=== PATIENT | female | born 1995 | race Hispanic/Latino ===

== ENCOUNTER 2023-05-26 02:11 | Emergency (ER) | payer OTHER, SELFPAY ==
[2023-05-26 02:21] VITALS: BP 145/81; PULSE 86; RESP 16; TEMP 37.1; O2SAT 97; BMI 33.6
--- NOTE | 2023-05-26 02:28 | DI.US.S_ITS ---
PROCEDURE: US PELVIC COMPLETE INDICATIONS: Abnormal vaginal bleeding TECHNIQUE: Real-time scanning was performed of the pelvic organs, with image documentation. Additional endovaginal scanning was necessary due to incomplete visualization of the adnexal and endometrial structures by transabdominal scanning. COMPARISON: None. FINDINGS: Uterus: Uterus is anteverted and normal in size at 7.9 x 4.1 x 5.9 cm. The myometrium is homogeneous. The endometrium measures 13 mm combined thickness. Ovaries: The right ovary measures 2.7 x 2.3 x 2.4 cm, with a calculated ovarian volume of 7.8 cc. The left ovary measures 2.3 x 2.2 x 2.2 cm, with a calculated ovarian volume of 6 cc. The ovaries have a normal sonographic appearance. Greater than 12 follicles can be seen in each ovary. No adnexal masses are seen. Normal arterial waveforms of the ovaries. Other: No pathologic free abdominal or pelvic fluid. IMPRESSION: Greater than 12 follicles per ovary, which can be seen in the clinical setting of PCOS. We strive to produce accurate, complete, and clear reports of imaging services. To assist us in improving patient care, this report was composed using standard report templates and voice recognition software. Therefore, it may contain abnormal punctuation, insertions and/or omissions. Occasional wrong-word or sound-alike substitutions may occur. Though we review the report and make efforts to correct it, we do recommend that the report be read carefully in proper context to recognize any text inaccuracies. Dictated by: Bro Burroughs M.D. on 05/26/2023 at 8:06 Approved by: Bro Burroughs M.D. on 05/26/2023 at 8:08
[2023-05-26 02:50] LABS: Add Manual Diff / Slide Review NO; Basophils Absolute Auto 0 /uL (0-100); Basophils Percent Auto 0.2 % (0-2); Eosinophils Absolute Auto 0 /uL (0-450); Eosinophils Percent Auto 0.1 % (2-4); Hematocrit 34.1 % (36-46); Hemoglobin 12.1 g/dL (12.0-16.0); Lymphocytes Absolute Auto 2500 /uL (1100-4500); Lymphocytes Percent Auto 29.1 % (25-40); Mean Corpuscular HGB Conc 35.5 % (30-36); Mean Corpuscular Hemoglobin 28.8 PG (26-34); Mean Corpuscular Volume 81.2 fL (80-100); Monocytes Absolute Auto 600 /uL (0-900); Monocytes Percent Auto 6.3 % (3-14); Neutrophils Absolute Auto 5600 /uL (1500-7000); Neutrophils Percent Auto 64.3 % (50-75); Platelet Count 297 X10^3/uL (150-400); Red Cell Distribution Width 13.6 % (11.6-14.8); White Blood Cell Count 8.7 X10^3/uL (4.5-11.0)
--- NOTE | 2023-05-26 02:50 | ED.GENADULT ---
HPI - General Adult General Chief complaint: Vaginal Bleeding Stated complaint: heavy period w/blood clots Time Seen by Provider: 05/26/23 02:27 Source: patient and family Mode of arrival: Ambulatory History of Present Illness HPI narrative: Patient is a 28-year-old female. Has been 4 times. Has 2 kids at home. Is not currently . Is not currently on control. States she is normally very regular with her menstrual cycles however for the past several days she has had persistent bleeding and passage of quite a bit of clots. No fevers. No urinary symptoms. No change in bowel habits. When the symptoms started she states that it would have normally been the start of irregular menstrual cycle but it has been lasting longer and more heavier than normal. She denies chest pain or shortness of breath. Related Data Previous Rx's Medication Instructions Recorded potassium chloride 10 mEq 10 meq PO DAILY 10 days #10 tabs 05/26/23 tablet,extended release(part/cryst) Allergies Allergy/AdvReac Type Severity Reaction Status Date / Time No Known Drug Allergies Allergy Verified 05/26/23 03:32 Review of Systems Constitutional Constitutional: Reports system reviewed and no additional complaints, except as documented Gastrointestinal Gastrointestinal: Reports system reviewed and no additional complaints, except as documented Genitourinary Genitourinary: Reports system reviewed and no additional complaints, except as documented Musculoskeletal Musculoskeletal: Reports system reviewed and no additional complaints, except as documented Patient History Social History Smoking Status: Never smoker Smoking Status: Never smoker Substance Use Type: does not use Exam Initial Vital Signs Initial Vital Signs: Vital Signs Temperature 98.8 F 05/26/23 02:21 Pulse Rate 86 05/26/23 02:21 Respiratory Rate 16 05/26/23 02:21 Blood Pressure 145/81 H 05/26/23 02:21 Pulse Oximetry 97 05/26/23 02:21 Oxygen Delivery Method Room Air 05/26/23 02:21 Const General: cooperative, comfortable and No ill appearing HENMT Head: normal to inspection and normocephalic Resp Effort & Inspection: normal respiratory effort Auscultation: clear to auscultation bilaterally Cardio Rate: regular rate Rhythm: regular rhythm GI Inspection: normal to inspection and non-distended Course Orders Ordered: ED Orders 05/26/23 02:28 US pelvic complete Stat 05/26/23 02:35 Basic Metabolic Panel Stat Complete Blood Count AUTO DIFF Stat Test Serum,Qual Stat 05/26/23 03:10 Urinalysis and Microscopic Stat Vital Signs Vital signs: Vital Signs - 8 hr 05/26/23 02:21 Temperature 98.8 F Pulse Rate 86 Respiratory Rate 16 Blood Pressure 145/81 H Pulse Oximetry 97 Oxygen Delivery Method Room Air Medical Decision Making Lab Data Lab results reviewed: Yes I reviewed the patient's lab results. 05/26/23 02:35 05/26/23 02:35 Labs: Lab Results 05/26/23 05/26/23 Range/Units 02:35 03:10 WBC 8.7 (4.5-11.0) X10^3/uL RBC 4.20 (4.0-5.2) X10^6/uL Hgb 12.1 (12.0-16.0) g/dL Hct 34.1 L (36-46) % MCV 81.2 (80-100) fL MCH 28.8 (26-34) PG MCHC 35.5 (30-36) % RDW 13.6 (11.6-14.8) % Plt Count 297 (150-400) X10^3/uL Neut % (Auto) 64.3 (50-75) % Lymph % (Auto) 29.1 (25-40) % Burt % (Auto) 6.3 (3-14) % Eos % (Auto) 0.1 L (2-4) % Baso % (Auto) 0.2 (0-2) % Neut # (Auto) 5600 (2746-3252) /uL Lymph # (Auto) 2500 (4157-4361) /uL Burt # (Auto) 600 (0-900) /uL Eos # (Auto) 0 (0-450) /uL Baso # (Auto) 0 (0-100) /uL Sodium 139 (137-145) mmol/L Potassium 2.5 L* (3.4-5.1) mmol/L Chloride 104 (98-107) mmol/L Carbon Dioxide 31 (22-32) mmol/L BUN 10 (7-17) mg/dL Creatinine 1.19 H (0.52-1.04) mg/dL Estimated GFR > 60 (>60) mL/min BUN/Creatinine Ratio 8.4 (6-22) Glucose 135 H (70-100) mg/dL Calcium 9.0 (8.4-10.2) mg/dL Serum , Qual Negative (Negative) Urine Color Yellow Urine Appearance Clear Urine pH 7.5 (4.5-8.0) Ur Specific [employer] 1.015 (1.000-1.035) Urine Protein Negative (Negative) Urine Glucose (UA) Negative (Negative) g/dL Urine Ketones Negative (NEGATIVE) Urine Occult Blood 3+ H (Negative) Urine Nitrate Negative (Negative) Urine Bilirubin Negative (NEGATIVE) Urine Urobilinogen 0.2 (0.2) E.U./dL Ur Leukocyte Esterase Negative (NEGATIVE) Urine RBC 30-100/hpf H (0-5/HPF) Urine WBC None seen (0-5/HPF) Ur Squamous Epith Cells 0-1 /hpf (0-5/HPF) Urine Bacteria None seen (None) Ur Culture Indicated? Cult not indicated Vol Urine Centrifuged 10ml (spun) Imaging Data US - EVIDENCE CUSTODIAN: Radiologist's Impression: Endometrium upper limits of normal in thickness during the secreted megan phase of the menstrual cycle. Follow-up ultrasound during proliferative phase of the menstrual cycle. Normal over/adnexa MDM Narrative Medical decision making narrative: Patient's potassium is low. Upon further questioning she has had issues with low potassium in the past. Sounds like she has had a fairly extensive workup for this to include seeing Nephrology. She has been on potassium supplementation in the past but not currently. She is tolerating oral intake. We will start her on home potassium. This was sent to the pharmacy of her choice. She has not anemic. Vital signs are unremarkable. Not febrile. Ultrasound is relatively unremarkable. test is negative. Discussed this with the patient and her at bedside. They were given follow-up information for [facility]. No indication for admission to the hospital. Patient was given return precautions. She expressed understanding and agreement with plan. Discharge Plan Departure Patient Disposition: Home Clinical Impression: Hypokalemia, Abnormal vaginal bleeding Instructions: DI for Vaginal Bleeding Activity Restrictions/Additional Instructions: A prescription for potassium was sent to [facility]. Please take it as directed. I also recommend that you contact the OB provider the number provided below to see what they need an order for you to have a referral to follow-up. Return to the emergency department for new symptoms. Prescriptions: New potassium chloride 10 mEq tablet,ER particles/crystals 10 meq PO DAILY 10 Days Qty: 10 0RF Referrals: Haylee Kerns MD [Physician] - Provider,Christopher HARTMANN [Primary Care Provider] - Stand Alone Forms: Patient Portal/API
[2023-05-26 03:01] LABS: BUN Creatinine Ratio 8.4 (6-22); Blood Urea Nitrogen 10 mg/dL (7-17); Carbon Dioxide 31 mmol/L (22-32); Chloride 104 mmol/L (98-107); Estimated Glomerular Filt Rate > 60 mL/min (>60); Glucose 135 mg/dL (70-100); HEMOLYSIS < 15 (0-50); Sodium 139 mmol/L (137-145)
[2023-05-26 03:04] LABS: Potassium 2.5 mmol/L (3.4-5.1)
[2023-05-26 03:17] LABS: Pregnancy Test Serum,Qual Negative (Negative)
[2023-05-26 03:20] LABS: Appearance Urine UA CLEAR; Bilirubin Urine UA NEGATIVE (NEGATIVE); Color Urine UA YELLOW; Glucose Urine UA NEGATIVE (Negative); Ketones Urine UA NEGATIVE (NEGATIVE); Leukocyte Esterase Urine UA NEGATIVE (NEGATIVE); Nitrite Urine UA NEGATIVE (Negative); Occult Blood Urine UA 3+ (Negative); Protein Urine UA NEGATIVE (Negative); Specific Gravity Urine UA 1.015 (1.000-1.035); Urobilinogen Urine UA 0.2 E.U./dL (0.2)
[2023-05-26 03:40] LABS: pH Urine UA 7.5 (4.5-8.0)
[2023-05-26 03:43] LABS: RBC Urine 30-100/HPF (0-5/HPF); Urine Volume 10mL (spun)
[2023-05-26 03:44] LABS: Bacteria Urine None Seen; Culture Indicated Urine Cult Not Indicated; Squamous Epithelial Cell Urine 0-1 /HPF (0-5/HPF); WBC Urine None Seen (0-5/HPF)
[2023-05-26 04:48] VITALS: BP 127/82; PULSE 70; RESP 16; O2SAT 98
== END 2023-05-26 04:50 | disposition home or self-care (01) ==
PROVIDERS: Emergency Provider Emergency Medicine
DX: E87.6 Hypokalemia (principal); N93.9 Abnormal uterine and vaginal bleeding, unspecified
CPT/HCPCS: 36415; 76830; 76856; 80048; 81001; 84703; 85025; 93975; 99283; 99284